=== PATIENT | female | born 2000 | race African-American/Black ===

== ENCOUNTER 2024-04-14 08:10 | Emergency (ER) | payer SELFPAY ==
[~2024-04-14] VITALS: Ht 167.6 cm; Wt 60.0 kg
[2024-04-14 08:13] VITALS: O2SAT 98
[2024-04-14] MEDS: MECLIZINE 25MG TABLET PO ONE (08:30)
[2024-04-14 09:02] LABS: BASOPHILS % 0.5 % (0.0-2.0); DIFFERENTIAL COMMENT 0; EOSINOPHILS % 1.9 % (0.0-5.0); HEMATOCRIT. 37.2 % (36.0-48.0); HEMOGLOBIN. 11.5 g/dL (12.0-16.0); LYMPHOCYTES % 25.1 % (20.0-50.0); MEAN CORPUSCULAR HGB CONC 30.8 g/dL (31.0-37.0); MEAN CORPUSCULAR VOLUME 74.6 fL (81.0-99.0); MEAN PLATELET VOLUME 7.9 fl (7.4-10.4); MONOCYTES % 12.9 % (2.0-8.0); NEUTROPHILS % 59.6 % (40.0-76.0); PLATELET 233 x1000/uL (130-400); RED BLOOD CELL COUNT 4.99 mill/uL (4.2-5.4); RED CELL DISTRIBUTION WIDTH 15.6 % (11.6-14.6); WHITE BLOOD COUNT 4.6 x1000/uL (4.5-11.0)
[2024-04-14 09:09] LABS: CHLORIDE 106 mEq/L (98-107); POTASSIUM 3.9 mEq/L (3.5-5.1); SODIUM 141 mEq/L (136-145)
[2024-04-14 09:10] LABS: CALCIUM 9.2 mg/dL (8.7-10.4); CARBON DIOXIDE 29 mEq/L (21-32)
[2024-04-14 09:15] LABS: CREATININE 0.6 mg/dL (0.6-1.0); GLUCOSE 88 mg/dL (70-105); HCG SCREEN NEGATIVE; UREA NITROGEN BLOOD 8 mg/dL (9-23)
[2024-04-14 09:18] LABS: *AMPHETAMINES SCREEN URINE NEGATIVE (NEGATIVE); *BENZODIAZEPINES SCREEN URINE NEGATIVE (NEGATIVE)
[2024-04-14 09:19] LABS: *BARBITURATES SCREEN URINE NEGATIVE (NEGATIVE); *COCAINE SCREEN URINE NEGATIVE (NEGATIVE); CANNABINOID URINE SCREEN PRESUMPTIVE POSITIVE (NEGATIVE); ECSTASY MDMA SCREEN URINE NEGATIVE (NEGATIVE); METHADONE URINE SCREEN NEGATIVE (NEGATIVE); OPIATES URINE SCREEN NEGATIVE (NEGATIVE); PHENCYCLIDINE URINE SCREEN NEGATIVE (NEGATIVE)
[2024-04-14 09:50] LABS: ETHANOL BLOOD < 10 mg/dL (<10); TROPONIN I HIGH SENSITIVITY < 4 ng/L (3.0-34)
[2024-04-14] MEDS ORDERED: MECL-299 MT (09:56)
[2024-04-14 10:08] VITALS: BP 113/78; PULSE 98; RESP 18; TEMP 36.9; O2SAT 100
== END 2024-04-14 10:09 | disposition home or self-care (01) ==
LOC: ER 08:10
DX: H81.10 Benign paroxysmal vertigo, unspecified ear (principal); D64.9 Anemia, unspecified; E87.6 Hypokalemia; F12.90 Cannabis use, unspecified, uncomplicated; Z79.899 Other long term (current) drug therapy
CPT/HCPCS: 80305; 80048; 81025; 80320; 84703; 83735; 85025; 85379; 84484; 36415; 71045; 99284; J8597; G0480